=== PATIENT | female | born 1980 | race African-American/Black ===

== ENCOUNTER → 2018-01-26 | Outpatient (CLI) | payer OTHER ==
[2015-10-31 12:30] VITALS: BP 128/46
[~2018-01-26] MED LIST: ALBU1.25 NEB; ALBU6.7H IH; AZIT250T6 PO; FERR325T58 PO; FLUT1BLS IH; PRED20TA PO; PREN1TAB58 PO
--- NOTE | 2018-01-26 10:11 | RAD ---
CHEST PA LATERAL Technique: PA and lateral views of the chest were obtained. Clinical History: short of breath x 1 week, hx of asthma Comparison: October 31, 2015. Findings: The heart is mildly large. There is low lung volumes causing crowding of pulmonary vasculature. The pleural margins are clear. This study is mildly under penetrated due to large body habitus. Impression: Low lung volumes. No acute findings.. Electronically signed by: Mariano Aj III, MD (01/26/2018 10:08 AM) [facility]
== END | disposition home or self-care (01) ==
LOC: RAD 09:19
PROVIDERS: ATTEND Physician Assistant
DX: R06.00 Dyspnea, unspecified (principal); J45.901 Unspecified asthma with (acute) exacerbation
CPT/HCPCS: 71046

== ENCOUNTER 2018-10-01 16:20 | Emergency (ER) | payer OTHER ==
[~2018-10-01] VITALS: Ht 172.7 cm; Wt 204.1 kg
[~2018-10-01 16:20] MED LIST changes: +ALBU2.5V8 IH; -ALBU6.7H IH
--- NOTE | 2018-10-01 16:44 | PHYS DOC ---
Past History Past Medical History: Asthma Past Surgical History: , Other Alcohol Use: Rarely Drug Use: None Adult General Chief Complaint Chief Complaint: KNEE INJURY HPI HPI 38-year-old female presents after fall at home. The patient has had vomiting and general feeling of being ill for the last 4 days. She had a little bit dizzy today and started to fall over. She was unable to catch herself. She fell backwards onto her buttocks but states she also felt like her right leg was under her. She now has pain in her lumbar back that radiates down the right leg. Her right knee is painful. Right leg is externally rotated. She denies hitting her head or loss of consciousness. Review of Systems Review of Systems Constitutional: Denies fever or chills [] Eyes: Denies change in visual acuity, redness, or eye pain [] HENT: Denies nasal congestion or sore throat [] Respiratory: Denies cough or shortness of breath [] Cardiovascular: No additional information not addressed in HPI [] GI: Denies abdominal pain, nausea, vomiting, bloody stools or diarrhea [] : Denies dysuria or hematuria [] Musculoskeletal: Right hip pain. Right knee pain.[] Integument: Denies rash or skin lesions [] Neurologic: Denies headache, focal weakness or sensory changes [] Endocrine: Denies polyuria or polydipsia [] All other systems were reviewed and found to be within normal limits, except as documented in this note. Current Medications Current Medications Current Medications Medications (Trade) Dose Ordered Sig/Dimitri Start Time Stop Time Status Last Admin Dose Admin Ondansetron HCl (Zofran) 4 mg 1X ONCE 10/01/18 16:45 10/01/18 16:46 Sodium Chloride 1,000 ml @ 1,000 mls/hr 1X ONCE 10/01/18 16:45 10/01/18 17:44 Allergies Allergies Allergies Coded Allergies Type Severity Reaction Last Updated Verified Sulfa (Sulfonamide Antibiotics) Allergy Unknown Diarrhea 02/13/15 No Physical Exam Physical Exam Constitutional: Well developed, morbidly obese, well nourished, no acute distress, non-toxic appearance. [] HENT: Normocephalic, atraumatic, bilateral external ears normal, oropharynx moist, no oral exudates, nose normal. [] Eyes: PERRLA, EOMI, conjunctiva normal, no discharge. [] Neck: Normal range of motion, no tenderness, supple, no stridor. [] Cardiovascular:Heart rate regular rhythm, no murmur [] Lungs & Thorax: Bilateral breath sounds clear to auscultation [] Abdomen: Bowel sounds normal, soft, no tenderness, no masses, no pulsatile masses. [] Skin: Warm, dry, no erythema, no rash. [] Back: No tenderness, no CVA tenderness. [] Extremities: Exam limited by body habitus and pain. Right leg is externally rotated.[] Neurologic: Alert and oriented X 3, normal motor function, normal sensory function, no focal deficits noted. [] Psychologic: Affect normal, judgement normal, mood normal. [] EKG EKG [] Radiology/Procedures Radiology/Procedures [] Impressions: Indication: Injury from fall, pelvic and lower back pain TECHNIQUE: 3 views of the lumbar spine and single AP view of the pelvis COMPARISON: None FINDINGS: Lumbar spine is in normal anatomic alignment. No compression deformity. There are 5 lumbar vertebral bodies. Degenerative disc disease seen at L5-S1. Mild superior anterior abnormality seen in L2 vertebral body likely degenerative in nature. Bilateral hip joints are symmetric. No acute fractures. IMPRESSION: No acute radiographic findings. If concern persists further evaluation with CT may be of additional benefit. Electronically signed by: Marques Bolton DO (10/01/2018 6:12 PM) [facility] DICTATED AND SIGNED BY: MARQUES BOLTON DO DATE: 10/01/181811 CC: TIBURCIO AYON DO; YOSHI PELLETIER ~ Indication:Injury from fall, right knee pain TECHNIQUE: 3 views of the right knee COMPARISON:None FINDINGS/ impression: Suboptimal positioning limits evaluation. No apparent acute fractures or dislocation. Moderate tricompartmental osteoarthritis. No joint effusion. Electronically signed by: Marques Bolton DO (10/01/2018 6:20 PM) [facility] DICTATED AND SIGNED BY: MARQUES BOLTON DO DATE: 10/01/181819 CC: TIBURCIO AYON DO; YOSHI PELLETIER ~ Course & Med Decision Making Course & Med Decision Making Pertinent Labs and Imaging studies reviewed. (See chart for details) The patient does not have any fractures or dislocations. I have given her a liter of normal saline, 4 mg Zofran IV, 2 mg morphine IV, 125mg Solu-medrol IV and one Preston 5/325 by mouth. The patient does have significant pain with movement of the lateral side of the knee. I am concerned for meniscal injury. I will place her in an immobilizer at this time and she will follow up with orthopedics if this does not rapidly improve. I will discharge her with Preston 5/ 325 as well as a short course of prednisone. The patient cannot take ibuprofen or naproxen due to her asthma. She is stable for discharge at this time. [] Dragon Disclaimer Dragon Disclaimer This electronic medical record was generated, in whole or in part, using a voice recognition dictation system. Departure Departure: Impression: Primary Impression: Right knee pain Disposition: HOME, SELF-CARE Condition: STABLE Referrals: YOSHI PELLETIER (PCP) Patient Instructions: Knee Pain, [id number] Scripts Prednisone (PREDNISONE) 10 Mg Tablet 50 MG PO DAILY for knee swelling for 3 Days, #15 TAB Prov: TIBURCIO AYON DO 10/01/18 Hydrocodone Bit/Acetaminophen (NORCO 5-325 TABLET) 1 Each Tablet 1 TAB PO PRN Q6HRS PRN for PAIN, #14 TAB 0 Refills Prov: TIBURCIO AYON DO 10/01/18 Problem Qualifiers Primary Impression: Right knee pain Chronicity: acute Qualified Codes: M25.561 - Pain in right knee TIBURCIO AYON DO Oct 01, 2018 16:44
[2018-10-01] MEDS ORDERED: ONDANSETRON PF 4 MG/2 ML VIAL. IV ONE (16:45)
[2018-10-01] MEDS ORDERED: IV NORMAL SALINE 1,000ML 1,000 ML IV ONE (16:45)
[2018-10-01 17:45] LABS: BASO # 0.1 x10^3/uL (0.0-0.2); BASO % 1 % (0-3); EOS # 0.1 x10^3/uL (0.0-0.7); EOS % 1 % (0-3); HEMOGLOBIN 12.1 g/dL (12.0-15.5); LYMPH # 1.9 x10^3/uL (1.0-4.8); LYMPH % 14 % (24-48); MEAN CORPUSCULAR HEMOGLOBIN 23 pg (25-35); MEAN CORPUSCULAR HGB CONC 31 g/dL (31-37); MEAN CORPUSCULAR VOLUME 73 fL (79-100); MONO # 0.9 x10^3/uL (0.0-1.1); MONO % 7 % (0-9); NEUT # 10.3 x10^3uL (1.8-7.7); NEUT % 78 % (31-73); PLATELET COUNT 324 x10^3/uL (140-400); RED BLOOD COUNT 5.34 x10^6/uL (3.50-5.40); RED CELL DISTRIBUTION WIDTH 19.4 % (11.5-14.5); WHITE BLOOD COUNT 13.2 x10^3/uL (4.0-11.0)
[2018-10-01 18:05] LABS: ALBUMIN 3.5 g/dL (3.4-5.0); ALBUMIN/GLOBULIN RATIO 0.9 (1.0-1.7); CALCIUM 8.4 mg/dL (8.5-10.1); CREATININE 0.9 mg/dL (0.6-1.0); GFR 84.8; POTASSIUM 3.6 mmol/L (3.5-5.1); TOTAL BILIRUBIN 1.3 mg/dL (0.2-1.0); TOTAL PROTEIN 7.3 g/dL (6.4-8.2)
--- NOTE | 2018-10-01 18:15 | RAD ---
Indication: Injury from fall, pelvic and lower back pain TECHNIQUE: 3 views of the lumbar spine and single AP view of the pelvis COMPARISON: None FINDINGS: Lumbar spine is in normal anatomic alignment. No compression deformity. There are 5 lumbar vertebral bodies. Degenerative disc disease seen at L5-S1. Mild superior anterior abnormality seen in L2 vertebral body likely degenerative in nature. Bilateral hip joints are symmetric. No acute fractures. IMPRESSION: No acute radiographic findings. If concern persists further evaluation with CT may be of additional benefit. Electronically signed by: Marques Sanchez DO (10/01/2018 6:12 PM) [facility]
--- NOTE | 2018-10-01 18:15 | RAD ---
Indication: Injury from fall, pelvic and lower back pain TECHNIQUE: 3 views of the lumbar spine and single AP view of the pelvis COMPARISON: None FINDINGS: Lumbar spine is in normal anatomic alignment. No compression deformity. There are 5 lumbar vertebral bodies. Degenerative disc disease seen at L5-S1. Mild superior anterior abnormality seen in L2 vertebral body likely degenerative in nature. Bilateral hip joints are symmetric. No acute fractures. IMPRESSION: No acute radiographic findings. If concern persists further evaluation with CT may be of additional benefit. Electronically signed by: Marques Sanchez DO (10/01/2018 6:12 PM) [facility]
--- NOTE | 2018-10-01 18:23 | RAD ---
Indication:Injury from fall, right knee pain TECHNIQUE: 3 views of the right knee COMPARISON:None FINDINGS/ impression: Suboptimal positioning limits evaluation. No apparent acute fractures or dislocation. Moderate tricompartmental osteoarthritis. No joint effusion. Electronically signed by: Marques Sanchez DO (10/01/2018 6:20 PM) [facility]
[2018-10-01] MEDS ORDERED: HYDROcodone/APAP 5/325MG 1 TAB TABLET PO ONE (18:30)
[2018-10-01] MEDS ORDERED: HYDR-3165 PO (18:39)
[2018-10-01] MEDS ORDERED: PRED-220 PO (18:39)
[2018-10-01] MEDS ORDERED: MORPHINE SULFATE 2 MG/ML DISP.SYRIN. IV ONE (18:45)
[2018-10-01] MEDS ORDERED: methylPREDNISolone SOD SUCC PF 125 MG/2 ML VIAL. IV ONE (18:45)
[2018-10-01 18:54] LABS: ANISOCYTOSIS SLIGHT; HYPOCHROMIA SLIGHT; MICROCYTOSIS SLIGHT; PLT ESTIMATE ADEQUATE (ADEQUATE)
[2018-10-01] MEDS ORDERED: MORPHINE SULFATE 4 MG/ML DISP.SYRIN. IV ONE (19:00)
[2018-10-01] MEDS ORDERED: LIDOCAINE (700MG/PATCH) PATCH. TD ONE (19:45)
[2018-10-01 22:02] VITALS: BP 178/103
== END 2018-10-01 22:24 | disposition short-term general hospital (02) ==
LOC: ER 16:20
DX: M25.561 Pain in right knee (principal); M25.551 Pain in right hip; R11.11 Vomiting without nausea; R42 Dizziness and giddiness; M54.5 Low back pain; G89.11 Acute pain due to trauma; J45.909 Unspecified asthma, uncomplicated; Z88.2 Allergy status to sulfonamides; W18.39XA Other fall on same level, initial encounter; Y93.89 Activity, other specified; Y92.098 Other place in other non-institutional residence as the place of occurrence of the external cause; Y99.8 Other external cause status
CPT/HCPCS: 29505; 36415; 72100; 72170; 73562; 80053; 85025; 96361; 96374; 96375; 99285; J2405; J2930; J7030

== ENCOUNTER 2020-10-26 23:13 | Emergency (ER) | payer OTHER ==
[~2020-10-26] VITALS: Ht 172.7 cm; Wt 181.0 kg
[~2020-10-26 23:13] MED LIST changes: +HYDR-3165 PO; +PRED-220 PO
[2020-10-27 00:55] VITALS: BP 160/103
[2020-10-27] MEDS ORDERED: CYCL-331 PO (03:32)
== END 2020-10-27 03:43 | disposition home or self-care (01) ==
LOC: ER 23:13
DX: K80.20 Calculus of gallbladder without cholecystitis without obstruction (principal); J45.909 Unspecified asthma, uncomplicated; Z98.890 Other specified postprocedural states; Z88.2 Allergy status to sulfonamides
CPT/HCPCS: 36415; 74177; 80053; 81001; 81025; 85007; 85025; 96361; 96374; 96375; 99285; J2270; J2405; J7030; Q9967

== ENCOUNTER 2020-12-18 15:26 | Emergency (ER) | payer OTHER ==
[~2020-12-18] VITALS: Ht 172.7 cm; Wt 181.0 kg
[~2020-12-18 15:26] MED LIST changes: +CYCL-331 PO
--- NOTE | 2020-12-18 17:18 | PHYS DOC ---
Past History Past Medical History: Arthritis, Asthma, Other Additional Past Medical Histor: celiac, lymphedema Past Surgical History: , Other Additional Past Surgical Histo: sinus Alcohol Use: None Drug Use: None General Adult EDM: Chief Complaint: LOWER EXT PAIN HPI: HPI: Patient is a 40-year-old female who presents with left lower leg pain, warmth, redness, and swelling. Patient states "I am worried that I might have a blood clot in my leg". Pedal pulses intact. Range of motion denies history of DVT. Denies chest pain or shortness of breath. Patient has a history of asthma. Review of Systems: Review of Systems: Constitutional: Denies fever or chills Eyes: Denies change in visual acuity HENT: Denies nasal congestion or sore throat Respiratory: Denies cough or shortness of breath Cardiovascular: Denies chest pain or edema GI: Denies abdominal pain, nausea, vomiting, bloody stools or diarrhea : Denies dysuria Musculoskeletal: Denies back pain or joint pain Integument: Left lower leg redness and swelling Neurologic: Denies headache, focal weakness or sensory changes Endocrine: Denies polyuria or polydipsia Lymphatic: Denies swollen glands Psychiatric: Denies depression or anxiety Allergies: Allergies: Allergies Coded Allergies Type Severity Reaction Last Updated Verified Sulfa (Sulfonamide Antibiotics) Allergy Unknown Diarrhea 02/13/15 No Physical Exam: PE: Constitutional: Well developed, well nourished, no acute distress, non-toxic appearance. [] HENT: Normocephalic, atraumatic, bilateral external ears normal, oropharynx moist, no oral exudates, nose normal. [] Eyes: PERRLA, EOMI, conjunctiva normal, no discharge. [] Neck: Normal range of motion, no tenderness, supple, no stridor. [] Cardiovascular:Heart rate regular rhythm, no murmur [] Lungs & Thorax: Bilateral breath sounds clear to auscultation [] Abdomen: Bowel sounds normal, soft, no tenderness, no masses, no pulsatile masses. [] Skin: Warm, red, swollen, left lower leg Back: No tenderness, no CVA tenderness. [] Extremities: Left lower leg tenderness, ROM intact, swelling, redness. Neurologic: Alert and oriented X 3, normal motor function, normal sensory function, no focal deficits noted. [] Psychologic: Affect normal, judgement normal, mood normal. [] Current Patient Data: Vital Signs: Vital Signs Date Time Temp Pulse Resp B/P (MAP) Pulse Ox O2 Delivery O2 Flow Rate FiO2 12/18/20 15:32 98.3 125 28 162/108 (126) 96 Room Air EKG: EKG: [] Radiology/Procedures: Radiology/Procedures: [] Heart Score: C/O Chest Pain: No Risk Factors: Risk Factors: DM, Current or recent (<one month) smoker, HTN, HLP, family history of CAD, obesity. Risk Scores: Score 0 - 3: 2.5% MACE over next 6 weeks - Discharge Home Score 4 - 6: 20.3% MACE over next 6 weeks - Admit for Clinical Observation Score 7 - 10: 72.7% MACE over next 6 weeks - Early Invasive Strategies Course & Med Decision Making: Course & Med Decision Making Pertinent Labs and Imaging studies reviewed. (See chart for details) [] 40-year-old female presents with left lower leg pain, warmth, redness and swelling. Ultrasound ordered to rule out DVT. Patient's denying shortness of breath or chest pain at this time. Ultrasound of left lower leg negative for DVT. Discussed results with patient. Patient's blood pressure was slightly elevated. Denies history of hypertension. Patient denies headache, blurry vision, shortness of breath. Heart rate was elevated at 114. Morphine given to treat pain. CBC, CMP, normal saline bolus given. Patient is afebrile. Patient's WBCs are 16.4. All other labs are unremarkable. Patient will be discharged home with Keflex. Patient given 1 dose here in the emergency room. Patient instructed to return emergency room if she starts having worsening symptoms or concerns. Ibuprofen and Tylenol for discomfort. Dragon Disclaimer: Dragon Disclaimer: This electronic medical record was generated, in whole or in part, using a voice recognition dictation system. Departure Departure: Impression: Primary Impression: Cellulitis and abscess of left lower extremity Disposition: HOME / SELF CARE / HOMELESS Condition: STABLE Referrals: YOSHI PELLETIER (PCP) Patient Instructions: Cellulitis, [id number] Additional Instructions: You are seen in the emergency room for left lower leg swelling. Dorsum was negative for DVT. I am sending home with prescription for Keflex to treat cellulitis. He can take ibuprofen and Tylenol for discomfort. Please return the emergency room if you have worsening symptoms or concerns. Otherwise follow-up with your PCP on Sunday for further management. EMERGENCY DEPARTMENT GENERAL DISCHARGE INSTRUCTIONS Thank you for coming to [facility] (ED) today and trusting us with you care. We trust that you had a positivie experience in our Emergency Department. If you wish to speak to the department management, you may call the director at [phone]. YOUR FOLLOW UP INSTRUCTIONS ARE FOLLOWS: 1. Do you have a private Doctor? If you do not have a private doctor, please ask for a resource list of physicians or clinics that may be able to assist you with follow up care. 2. The Emergency Physician has interpreted your x-rays. The X-Ray specialist will also review them. If there is a change in the findings, you will be notified in 48 h ours when at all possible. 3. A lab test or culture has been done, your results will be reviewed and you will be notified if you need a change in treatment. ADDITIONAL INSTRUCTIONS AND INFORMATION: 1. Your care today has been supervised by a physician who is specially trained in emergency care. Many problems require more than one evaluation for a complete diagnosis and treatment. We recommend that you schedule your follow up appointment as recommended to ensure complete treatment of you illness or injury. If you are unable to obtain follow up care and continue to have a problem, or if your condition worsens, we recommend that you return to the ED. 2. We are not able to safely determine your condition over the phone nor are we able to give sound medical advice over the phone. For these safety reasons, if you call for medical advice we will ask you to come to the ED for further evaluation. 3. If you have any questions regarding these discharge instructions please call the ED at [phone]. SAFETY INFORMATION: In the interest of safety, wellness, and injury prevention; we encourage you to wear your sealbelt, if you smoke; quite smoking, and we encourage family to use a protective helmet for bicycling and other sporting events that present an increased risk for head injury. IF YOUR SYMPTOMS WORSEN OR NEW SYMPTOMS DEVELOP, OR YOU HAVE CONCERNS ABOUT YOUR CONDITION; OR IF YOUR CONDITION WORSENS WHILE YOU ARE WAITING FOR YOUR FOLLOW UP APPOINTMENT; EITHER CONTACT YOUR PRIMARY CARE DOCTOR, THE PHYSICIAN WHOSE NAME AND NUMBER YOU WERE GIVEN, OR RETURN TO THE ED IMMEDIATELY. Scripts Cephalexin (CEPHALEXIN) 500 Mg Capsule 1 CAP PO BID for infection for 5 Days, #10 CAP Prov: TIBURCIO CARDONA APRN 12/18/20 TIBURCIO CARDONA APRN Dec 18, 2020 17:18
--- NOTE | 2020-12-18 19:20 | RAD ---
Examination: LEFT LOWER EXTREMITY - UNILATERAL VENOUS DOPPLER Technique: Ultrasound evaluation of the left lower extremity was performed from the groin to the uppe r calf with thomas scale, spectral and color doppler evaluation. Indication: Left Leg swelling Comparison: None Findings: There is normal venous flow and compressibility of left common femoral vein, femoral vein, popliteal vein, and visualized proximal calf veins. Impression: No evidence for deep vein thrombosis of left lower extremity from the level of the calf v eins to the groins. Electronically signed by: Steve Baez MD (12/18/2020 7:17 PM) [facility]
[2020-12-18] MEDS ORDERED: CEPH500C PO (20:02)
[2020-12-18] MEDS ORDERED: CEPHALEXIN 250MG 4CAPSULE STARTPACK. PO ONE (20:30)
[2020-12-18] MEDS ORDERED: LABETALOL 20 MG/4 ML DISP.SYRIN. IVP ONE (20:30)
[2020-12-18] MEDS ORDERED: MORPHINE SULFATE 4 MG/ML DISP.SYRIN. IV ONE (20:30)
[2020-12-18] MEDS ORDERED: cloNIDine HCL 0.1 MG TABLET PO ONE (20:30)
[2020-12-18] MEDS ORDERED: IV NORMAL SALINE 1,000ML 1,000 ML IV ONE (20:30)
[2020-12-18 20:52] LABS: BASO # 0.1 x10^3/uL (0.0-0.2); BASO % 1 % (0-3); EOS % 0 % (0-3); HEMATOCRIT 40.4 % (36.0-47.0); HEMOGLOBIN 12.9 g/dL (12.0-15.5); LYMPH # 1.2 x10^3/uL (1.0-4.8); LYMPH % 7 % (24-48); MEAN CORPUSCULAR HEMOGLOBIN 24 pg (25-35); MEAN CORPUSCULAR HGB CONC 32 g/dL (31-37); MEAN CORPUSCULAR VOLUME 74 fL (79-100); MONO % 6 % (0-9); NEUT # 14.1 x10^3uL (1.8-7.7); NEUT % 86 % (31-73); PLATELET COUNT 257 x10^3/uL (140-400); RED BLOOD COUNT 5.43 x10^6/uL (3.50-5.40); RED CELL DISTRIBUTION WIDTH 20.4 % (11.5-14.5); WHITE BLOOD COUNT 16.4 x10^3/uL (4.0-11.0)
[2020-12-18 21:04] LABS: GFR 83.9; POTASSIUM 4.5 mmol/L (3.5-5.1)
[2020-12-18 21:10] LABS: CALCIUM 9.4 mg/dL (8.5-10.1); CREATININE 0.9 mg/dL (0.6-1.0)
[2020-12-18 21:16] LABS: ALBUMIN 3.8 g/dL (3.4-5.0); ALBUMIN/GLOBULIN RATIO 1.1 (1.0-1.7); TOTAL BILIRUBIN 0.6 mg/dL (0.2-1.0); TOTAL PROTEIN 7.2 g/dL (6.4-8.2)
[2020-12-18 21:17] LABS: % BANDS 1 % (0-9); % LYMPHS 9 % (24-48); % MONOS 1 % (0-10); % SEGS 89 % (35-66); ANISOCYTOSIS MOD; HYPOCHROMIA SLIGHT; MICROCYTOSIS SLIGHT; PLT ESTIMATE ADEQUATE (ADEQUATE)
[2020-12-18 21:30] VITALS: BP 161/92
[2020-12-18] MEDS ORDERED: CEPHALEXIN 250 MG CAPSULE PO ONE (22:00)
== END 2020-12-18 21:35 | disposition home or self-care (01) ==
LOC: ER 15:26
DX: L03.116 Cellulitis of left lower limb (principal); J45.909 Unspecified asthma, uncomplicated; Z88.2 Allergy status to sulfonamides
CPT/HCPCS: 36415; 80053; 83605; 85007; 85025; 93971; 96361; 96374; 99285; J2270; J7030

== ENCOUNTER 2021-05-08 14:51 | Emergency (ER) | payer OTHER ==
[~2021-05-08] VITALS: Ht 172.7 cm; Wt 181.0 kg
[~2021-05-08 14:51] MED LIST changes: +CEPH500C PO; -CYCL-331 PO; +CYCL10TA19 PO
[2021-05-08] MEDS ORDERED: IPRATRPIUM/ALBUTEROL 0.5/2.5MG 3 ML NEBU. ONE (14:57)
--- NOTE | 2021-05-08 15:00 | PHYS DOC ---
Past History Past Medical History: Arthritis, Asthma, Other Additional Past Medical Histor: celiac, lymphedema Past Surgical History: , Other Additional Past Surgical Histo: sinus Alcohol Use: None Drug Use: None Adult General HPI HPI Patient is a 41-year-old female presenting for asthma attack. Reports onset was 2 days ago, states she typically has a flareup this time a year. She has been using home Pulmicort inhaler with increased frequency of rescue inhaler. Also cites that she is a steroid dependent asthmatic and has been taking 10 mg of steroids daily since age 4. She is covered in outpatient setting by for[facility]mith at [facility]. Denies any recent hospitalizations and/or history of intubation. She has had no significant changes in baseline health. No recent sick contacts or travel. She is fully vaccinated against COVID-19 Review of Systems Review of Systems Fourteen body systems of review of systems have been reviewed. See HPI for pertinent positives and negative responses, other foster all other systems are negative, non-pertinent or non-contributory Current Medications Current Medications Current Medications Medications (Trade) Dose Ordered Sig/Dimitri Start Time Stop Time Status Last Admin Dose Admin Albuterol/ Ipratropium (Duoneb) 3 ml STK-MED ONCE 05/08/21 14:57 05/08/21 14:57 DC Allergies Allergies Allergies Coded Allergies Type Severity Reaction Last Updated Verified Sulfa (Sulfonamide Antibiotics) Allergy Intermediate Diarrhea 12/18/20 No Physical Exam Physical Exam Constitutional: Age-appropriate, morbidly obese, increased work of breathing and appears tired HENT: Normocephalic, atraumatic, bilateral external ears normal, oropharynx moist, no oral exudates, nose normal. Eyes: PERRLA, EOMI, conjunctiva normal, no discharge. Neck: Normal range of motion, no tenderness, supple, no stridor. Cardiovascular: Heart rate tachycardic, sinus rhythm, no murmurs rubs or gallops Lungs & Thorax: Respiratory distress with increased work of breathing, there is accessory muscle use of neck noted bilaterally, there is minimal air movement bilaterally Abdomen: Bowel sounds normal, soft, no tenderness, no masses, no pulsatile masses. Nonsurgical abdomen, no peritoneal signs Skin: Warm, dry, no erythema, no rash. Back: No tenderness, no CVA tenderness. Extremities: No tenderness, no cyanosis, no clubbing, ROM intact, no edema. Neurologic: Alert and oriented X 3, grossly normal motor & sensory function, no focal deficits noted. Psychologic: Affect normal, judgement normal, mood normal. Current Patient Data Vital Signs Vital Signs Date Time Temp Pulse Resp B/P (MAP) Pulse Ox O2 Delivery O2 Flow Rate FiO2 05/08/21 14:51 160 60 175/120 (138) 86 05/08/21 14:51 Room Air 05/08/21 15:15 7.0 Vital Signs Date Time Temp Pulse Resp B/P (MAP) Pulse Ox O2 Delivery O2 Flow Rate FiO2 05/08/21 15:15 95 Aerosol Mask 7.0 05/08/21 14:51 160 60 175/120 (138) Lab Results Laboratory Tests Test 05/08/21 15:15 05/08/21 16:23 White Blood Count 18.8 x10^3/uL Red Blood Count 5.55 x10^6/uL Hemoglobin 12.8 g/dL Hematocrit 42.9 % Mean Corpuscular Volume 77 fL Mean Corpuscular Hemoglobin 23 pg Mean Corpuscular Hemoglobin Concent 30 g/dL Red Cell Distribution Width 20.6 % Platelet Count 344 x10^3/uL Neutrophils (%) (Auto) 86 % Lymphocytes (%) (Auto) 9 % Monocytes (%) (Auto) 4 % Eosinophils (%) (Auto) 0 % Basophils (%) (Auto) 0 % Neutrophils # (Auto) 16.1 x10^3uL Lymphocytes # (Auto) 1.8 x10^3/uL Monocytes # (Auto) 0.8 x10^3/uL Eosinophils # (Auto) 0.0 x10^3/uL Basophils # (Auto) 0.1 x10^3/uL Segmented Neutrophils % 79 % Band Neutrophils % 2 % Lymphocytes % 10 % Monocytes % 9 % Nucleated Red Blood Cells 1 Platelet Estimate Adequate Anisocytosis Mod Prothrombin Time 10.4 SEC Prothromb Time International Ratio 1.0 Activated Partial Thromboplast Time < 21 SEC Bedside Venous pH 7.22 Bedside Venous pCO2 38 mmHg Bedside Venous pO2 64 mmHg Venous Blood HCO3 16 mmol/L POC Venous O2 Saturation (Farhan) 88 % Bedside FiO2 48 Sodium Level 139 mmol/L Potassium Level 4.8 mmol/L Chloride Level 100 mmol/L Carbon Dioxide Level 17 mmol/L Anion Gap 22 Blood Urea Nitrogen 18 mg/dL Creatinine 1.7 mg/dL Estimated GFR (Cockcroft-Gault) 40.1 BUN/Creatinine Ratio 11 Glucose Level 433 mg/dL Lactic Acid Level 12.4 mmol/L Calcium Level 9.3 mg/dL Magnesium Level 2.0 mg/dL Total Bilirubin 1.1 mg/dL Aspartate Amino Transf (AST/SGOT) 93 U/L Alanine Aminotransferase (ALT/SGPT) 161 U/L Alkaline Phosphatase 102 U/L Troponin I High Sensitivity 157 ng/L KC-Opd-A-Type Natriuretic Peptide 5206 pg/mL Total Protein 7.3 g/dL Albumin 3.8 g/dL Albumin/Globulin Ratio 1.1 SARS-CoV-2 Antigen (Rapid) Negative Current Medications Medications (Trade) Dose Ordered Sig/Dimitri Route PRN Reason Start Time Stop Time Status Last Admin Dose Admin Albuterol/ Ipratropium (Duoneb) 3 ml STK-MED ONCE .ROUTE 05/08/21 14:57 05/08/21 14:57 DC Albuterol Sulfate (Ventolin) 2.5 mg 1X ONCE NEB 05/08/21 15:15 05/08/21 15:19 DC 05/08/21 15:16 Methylprednisolone Sodium Succinate (SOLU-Medrol 125MG VIAL) 125 mg 1X ONCE IV 05/08/21 15:15 05/08/21 15:19 DC 05/08/21 15:16 Magnesium Sulfate 50 ml @ 25 mls/hr 1X ONCE IV 05/08/21 15:15 05/08/21 17:14 DC 05/08/21 15:16 Iohexol (Omnipaque 350 Mg/ml) 100 ml 1X ONCE IV 05/08/21 15:15 05/08/21 15:19 DC 05/08/21 17:13 Sodium Chloride 1,000 ml @ 1,000 mls/hr 1X ONCE IV 05/08/21 15:30 05/08/21 16:29 DC 05/08/21 15:24 Albuterol/ Ipratropium (Duoneb) 3 ml 1X ONCE NEB 05/08/21 15:30 05/08/21 15:31 DC 05/08/21 15:24 Azithromycin 500 mg/Sodium Chloride 250 ml @ 250 mls/hr 1X ONCE IV 05/08/21 16:30 05/08/21 17:29 DC 05/08/21 17:24 Ceftriaxone Sodium 2 gm/ Sodium Chloride 100 ml @ 200 mls/hr 1X ONCE IV 05/08/21 16:30 05/08/21 16:59 DC 05/08/21 16:53 Aspirin (Brenda Aspirin) 325 mg 1X ONCE PO 05/08/21 16:30 05/08/21 16:31 DC Sodium Chloride 250 ml @ As Directed STK-MED ONCE .ROUTE 05/08/21 16:45 05/08/21 16:45 DC Azithromycin (Zithromax) 500 mg STK-MED ONCE IV 05/08/21 16:45 05/08/21 16:45 DC Ceftriaxone Sodium (Rocephin) 2 gm STK-MED ONCE IV 05/08/21 16:45 05/08/21 16:45 DC Sodium Chloride 100 ml @ As Directed STK-MED ONCE .ROUTE 05/08/21 16:45 05/08/21 16:46 DC EKG EKG EKG ordered and interpreted by myself 1509 hrs. as sinus tachycardia at 148 bpm, unremarkable intervals, no axis deviation, no acute ischemic findings, no STEMI Radiology/Procedures Radiology/Procedures CTA CHEST History: Shortness of breath. Technique: CT of the chest was performed with intravenous contrast. PE protocol. Maximum intensity projection coronal and sagittal reconstructions were performed. Exposure: One or more of the following individualized dose reduction techniques were utilized for this examination: 1. Automated exposure control 2. Adjustment of the mA and/or kV according to patient size 3. Use of iterative reconstruction technique. Comparison: None Findings: Degraded evaluation due to patient body habitus. Chest: Bilateral pulmonary emboli involving all of the lobes. The right ventricle is mildly dilated. No pathologic lymphadenopathy. No aortic aneurysm or dissection. No consolidation or pleural effusion. No pneumothorax. Upper abdomen: The imaged upper abdomen is unremarkable. Bones: Subacute right 8 through 10th rib fractures. Impression: 1. Acute bilateral pulmonary emboli. 2. Mildly dilated right ventricle. Recommend correlation for right heart strain. 3. Subacute right-sided rib fractures. FOR INTERNAL CODING PURPOSES Critical result: Findings discussed with Dr. Chahal at 05/08/2021 5:41 PM. RESULT CODE: (C) Electronically signed by: Ke Ortiz DO (05/08/2021 5:43 PM) [facility] Heart Score C/O Chest Pain: No HEART Score for Chest Pain: HEART Score for Chest Pain Response (Comments) Value History Moderately Suspicious 1 ECG Nonspecific Repolarizatio 1 Age < 45 0 Risk Factors 1 or 2 Risk Factors 1 Troponin < Normal Limit 0 Total 3 Risk Factors: Risk Factors: DM, Current or recent (<one month) smoker, HTN, HLP, family history of CAD, obesity. Risk Scores: Risk Factors: DM, Current or recent (<one month) smoker, HTN, HLP, family history of CAD, obesity. Course & Med Decision Making Course & Med Decision Making Airway patent, patient in no overt respiratory distress on immediate arrival, IV access and vitals obtained concerning for tachycardia, tachypnea, and hypoxia in the 70s on arrival Patient immediately stabilized with x2 back to back albuterol breathing treatments administered. 125 mg Solu-Medrol and 2 g IV magnesium given. Subsequent 1 L fluid IV normal saline administered Patient repositioned and with treatment above tachypnea and tachycardia im proved. Patient taken off of initial nonrebreather and titrated down to nasal cannula Further comprehensive ER work-up obtained concerning for submassive pulmonary embolism due to bilateral pulmonary emboli involving all lobes with subsequent increase BMP and imaging proof of right heart strain. Heparin drip started Discussed need for ICU admission and higher acuity of care. Patient's forgesmith at [facility], joint decision made to transfer there. I contacted hospitalist, Dr. Moses who ultimately accepted patient in transfer under his care Critical Care Time This patient required critical care. Due to the fact that the patient required a significant amount of one on one physician - patient contact time, ordering and review of studies, arranging urgent treatment with development of a management plan, evaluation of patients response to treatment with frequent reassessments, and discussions with other providers this patient required 40 minutes of critical care time. Critical care time was indicated due to the inherent instability and/or potential for instability in this patient. The critical care time that is allocated to this patient is above and beyond any time spent on any other billable procedures performed on this patient. Dragon Disclaimer Dragon Disclaimer This electronic medical record was generated, in whole or in part, using a voice recognition dictation system. Departure Departure: Impression: Primary Impression: Bilateral pulmonary embolism Additional Impressions: Acute respiratory failure with hypoxia Asthma Disposition: 02 [facility] Admitting Physician: Other (Dr. Wray) Condition: GUARDED Referrals: YOSHI PELLETIER (PCP) Problem Qualifiers NIMCO CHAHAL DO May 08, 2021 15:00
[2021-05-08] MEDS ORDERED: MAGNESIUM SULFATE 2GM 50 ML IV ONE (15:15)
[2021-05-08] MEDS ORDERED: IOHEXOL 350 MG/ML 100 ML VIAL. IV ONE (15:15)
[2021-05-08] MEDS ORDERED: methylPREDNISolone SOD SUCC PF 125 MG/2 ML VIAL. IV ONE (15:15)
[2021-05-08] MEDS ORDERED: ALBUTEROL SULFATE 2.5 MG/3 ML NEBU. NEB ONE (15:15)
[2021-05-08] MEDS ORDERED: IPRATRPIUM/ALBUTEROL 0.5/2.5MG 3 ML NEBU. NEB ONE (15:30)
[2021-05-08] MEDS ORDERED: IV NORMAL SALINE 1,000ML 1,000 ML IV ONE (15:30)
[2021-05-08 15:41] LABS: BASO # 0.1 x10^3/uL (0.0-0.2); BASO % 0 % (0-3); EOS % 0 % (0-3); HEMATOCRIT 42.9 % (36.0-47.0); HEMOGLOBIN 12.8 g/dL (12.0-15.5); LYMPH # 1.8 x10^3/uL (1.0-4.8); LYMPH % 9 % (24-48); MEAN CORPUSCULAR HEMOGLOBIN 23 pg (25-35); MEAN CORPUSCULAR HGB CONC 30 g/dL (31-37); MEAN CORPUSCULAR VOLUME 77 fL (79-100); MONO # 0.8 x10^3/uL (0.0-1.1); MONO % 4 % (0-9); NEUT # 16.1 x10^3uL (1.8-7.7); NEUT % 86 % (31-73); PLATELET COUNT 344 x10^3/uL (140-400); RED BLOOD COUNT 5.55 x10^6/uL (3.50-5.40); RED CELL DISTRIBUTION WIDTH 20.6 % (11.5-14.5); WHITE BLOOD COUNT 18.8 x10^3/uL (4.0-11.0)
--- NOTE | 2021-05-08 15:43 | EKG ---
[address] [address] Test Date: 2021-05-08 Test Time: 15:06:04 Pat Name: STACI CARLOS Department: Room: Gender: F [place] Nurse: GALILEA : 1980 Requested By: NIMCO CHAHAL Order Number: [id number] Reading MD: Adithya Carter Measurements Intervals [place] Rate: 148 P: 251 MS: 100 QRS: 12 QRSD: 92 T: 37 QT: 268 QTc: 425 Interpretive Statements SINUS TACHYCARDIA R-S TRANSITION ZONE IN V LEADS DISPLACED TO THE LEFT NO SPECIFIC ECG ABNORMALITIES RI6.02 No previous ECG available for comparison Electronically Signed On 05-09-2021 8:56:49 OCCUPATIONAL HEALTH PHYSICIAN by Adithya Carter
[2021-05-08 15:53] LABS: CALCIUM 9.3 mg/dL (8.5-10.1); CREATININE 1.7 mg/dL (0.6-1.0); GFR 40.1; POTASSIUM 4.8 mmol/L (3.5-5.1)
[2021-05-08 15:59] LABS: ALBUMIN 3.8 g/dL (3.4-5.0); ALBUMIN/GLOBULIN RATIO 1.1 (1.0-1.7); TOTAL BILIRUBIN 1.1 mg/dL (0.2-1.0); TOTAL PROTEIN 7.3 g/dL (6.4-8.2)
[2021-05-08 16:16] LABS: % BANDS 2 % (0-9); % LYMPHS 10 % (24-48); % MONOS 9 % (0-10); % SEGS 79 % (35-66); NUCLEATED RBC 1; PLT ESTIMATE ADEQUATE (ADEQUATE)
[2021-05-08 16:17] LABS: ANISOCYTOSIS MOD
--- NOTE | 2021-05-08 16:23 | RAD ---
XR CHEST 1V History: Reason: SHOB / Spl. Instructions: / History: Comparison: January 26, 2018 Findings: Degraded evaluation due to patient body habitus. No consolidation or pleural effusion. Normal heart s ize. No pneumothorax. Impression: 1. No acute cardiopulmonary process. Electronically signed by: Ke Ortiz DO (05/08/2021 4:21 PM) [facility]
[2021-05-08] MEDS: ASPIRIN 325 MG TABLET PO ONE ×2 (16:30→16:53)
[2021-05-08] MEDS ORDERED: AZITHROMYCIN 500 MG in IV NORMAL SALINE 250ML 250 ML IV ONE (16:30)
[2021-05-08] MEDS ORDERED: IV NORMAL SALINE 250ML 250 ML ONE (16:45)
[2021-05-08] MEDS ORDERED: AZITHROMYCIN 500 MG VIAL. IV ONE (16:45)
[2021-05-08] MEDS ORDERED: IV NORMAL SALINE 100ML 100 ML ONE (16:45)
--- NOTE | 2021-05-08 17:45 | RAD ---
CTA CHEST History: Shortness of breath. Technique: CT of the chest was performed with intravenous contrast. PE protocol. Maximum intensity pr ojection coronal and sagittal reconstructions were performed. Exposure: One or more of the following individualized dose reduction techniques were utilized for thi s examination: 1. Automated exposure control 2. Adjustment of the mA and/or kV according to patient size 3. Use of iterative reconstruction technique. Comparison: None Findings: Degraded evaluation due to patient body habitus. Chest: Bilateral pulmonary emboli involving all of the lobes. The right ventricle is mildly dilated. No pathologic lymphadenopathy. No aortic aneurysm or dissection. No consolidation or pleural effusion. No pneumothorax. Upper abdomen: The imaged upper abdomen is unremarkable. Bones: Subacute right 8 through 10th rib fractures. Impression: 1. Acute bilateral pulmonary emboli. 2. Mildly dilated right ventricle. Recommend correlation for right heart strain. 3. Subacute right-sided rib fractures. FOR INTERNAL CODING PURPOSES Critical result: Findings discussed with Dr. Rodriguez at 05/08/2021 5:41 PM. RESULT CODE: (C) Electronically signed by: Ke Ortiz DO (05/08/2021 5:43 PM) [facility]
[2021-05-08] MEDS ORDERED: HEPARIN for IV BOLUS 10,000 UNIT/10 ML VIAL. IV PRN ×3 (18:00)
[2021-05-08] MEDS ORDERED: HEPARIN for IV BOLUS 10,000 UNIT/10 ML VIAL. IV ONE (18:00)
[2021-05-08] MEDS ORDERED: HEPARIN 25,000UTS/250ML PREMIX 250 ML IV PRN (18:00)
[2021-05-08 18:45] LABS: BACTERIA,URINE 0 /HPF (0-FEW); BILIRUBIN,URINE NEG (NEG); CLARITY,URINE CLEAR; COLOR,URINE YELLOW; GLUCOSE,URINE >=1000 mg/dL (NEG); NITRITE,URINE NEG (NEG); RBC,URINE OCC /HPF (0-2); SQUAMOUS EPITHELIAL CELL,UR MOD /LPF; WBC,URINE 0 /HPF (0-4)
[2021-05-08 18:48] VITALS: BP 174/94
== END 2021-05-08 19:45 | disposition short-term general hospital (02) ==
LOC: ER 14:51
DX: I26.99 Other pulmonary embolism without acute cor pulmonale (principal); J96.01 Acute respiratory failure with hypoxia; J45.901 Unspecified asthma with (acute) exacerbation; M19.90 Unspecified osteoarthritis, unspecified site; Z20.822 Contact with and (suspected) exposure to COVID-19; Z88.2 Allergy status to sulfonamides
CPT/HCPCS: 36415; 71045; 71275; 80053; 81001; 82803; 83605; 83735; 83880; 84484; 85007; 85025; 85610; 85730; 87426; 93005; 94640; 96365; 96366; 96367; 96368; 96375; 96376; 99291; C9803; J0456; J0696; J1644; J2930; J3475; J7030; J7050; J7613; Q9967; U0003

== ENCOUNTER 2021-05-20 10:04 | Emergency (ER) | payer OTHER ==
[~2021-05-20] VITALS: Ht 172.7 cm; Wt 223.0 kg
[2021-05-20 10:42] LABS: BASO # 0.1 x10^3/uL (0.0-0.2); BASO % 1 % (0-3); EOS % 0 % (0-3); HEMOGLOBIN 8.7 g/dL (12.0-15.5); LYMPH # 5.3 x10^3/uL (1.0-4.8); LYMPH % 27 % (24-48); MEAN CORPUSCULAR HEMOGLOBIN 23 pg (25-35); MEAN CORPUSCULAR HGB CONC 29 g/dL (31-37); MEAN CORPUSCULAR VOLUME 79 fL (79-100); MONO # 1.8 x10^3/uL (0.0-1.1); MONO % 9 % (0-9); NEUT # 12.3 x10^3uL (1.8-7.7); NEUT % 63 % (31-73); PLATELET COUNT 253 x10^3/uL (140-400); RED BLOOD COUNT 3.81 x10^6/uL (3.50-5.40); RED CELL DISTRIBUTION WIDTH 21.1 % (11.5-14.5); WHITE BLOOD COUNT 19.6 x10^3/uL (4.0-11.0)
[2021-05-20] MEDS ORDERED: NOREPINEPHRINE BITARTRATE 8 MG in IV DEXTROSE 5% 250 ML IV PRN (10:45)
[2021-05-20 10:48] LABS: ALBUMIN 2.7 g/dL (3.4-5.0); ALBUMIN/GLOBULIN RATIO 0.6 (1.0-1.7); CREATININE 1.4 mg/dL (0.6-1.0); GFR 50.1; TOTAL PROTEIN 7.3 g/dL (6.4-8.2)
[2021-05-20] MEDS ORDERED: EPINEPHrine SYRINGE 1 MG/10 ML SYRINGE ONE (10:48)
[2021-05-20 10:55] LABS: POTASSIUM 6.1 mmol/L (3.5-5.1)
--- NOTE | 2021-05-20 11:03 | RAD ---
EXAM: Chest, single view. HISTORY: Intubation. COMPARISON: 05/08/2021 FINDINGS: A frontal view of the chest is obtained. There is an endotracheal tube within the mid to di stal trachea. The tip is approximately 2.6 cm proximal to the aline. There is diffuse interstitial a nd alveolar infiltrate. There are small pleural effusions. There is no pneumothorax. There is a stabl e prominent cardiac silhouette. IMPRESSION: 1. Diffuse interstitial and alveolar infiltrate. 2. Endotracheal tube within the mid to distal trachea. Electronically signed by: Adrienne Conley MD (05/20/2021 11:01 AM) [id number]
--- NOTE | 2021-05-20 11:23 | PHYS DOC ---
Past History Past Medical History: Arthritis, Asthma, Other Additional Past Medical Histor: celiac, lymphedema Past Surgical History: , Other Additional Past Surgical Histo: sinus Alcohol Use: None Drug Use: None General Adult EDM: Chief Complaint: CPR/FULL ARREST HPI: HPI: 41-year-old female presents via EMS as respiratory distress. The entire chart is gleaned from EMS reports as the patient is unresponsive. The patient was having shortness of breath and called EMS. When they arrived they found her oxygen to be below 90. She increased with supplemental oxygen. While they were transporting her to the ambulance, she collapsed. She continued to have a pulse but needed supplemental respirations. EMS continued to bag the patient in route to the hospital. They did not report loss of pulses during transport. The patient was reported to have been discharged from [facility] within the last few days because she had a blood clot. Review of Systems: Review of Systems: Unable to evaluate due to unresponsive state Current Medications: Current Meds: Current Medications Medications (Trade) Dose Ordered Sig/Dimitri Start Time Stop Time Status Last Admin Dose Admin Epinephrine HCl (EPINEPHrine SYRINGE) 1 mg STK-MED ONCE 05/20/21 10:48 05/20/21 10:48 DC Norepinephrine Bitartrate 8 mg/ Dextrose 258 ml @ 13.545 mls/ hr CONT PRN 05/20/21 10:45 Allergies: Allergies: Allergies Coded Allergies Type Severity Reaction Last Updated Verified Sulfa (Sulfonamide Antibiotics) Allergy Intermediate Diarrhea 12/18/20 No aspirin Allergy Unknown 05/08/21 Yes Physical Exam: PE: Constitutional: Well developed, well nourished, morbidly obese, severe acute distress. [] HENT: Normocephalic, atraumatic, bilateral external ears normal, oropharynx dry, no oral exudates, nose normal. [] Eyes: Pupils mid dilated, no corneal reflex, conjunctiva normal, no discharge. [] Neck: No obvious trauma [] Cardiovascular: Asystole [] Lungs & Thorax: Bilateral breath sounds diminished [] Abdomen: soft, no tenderness, no masses, no pulsatile masses. [] Skin: Warm, dry, scattered ecchymosis of the forearms. [] Back: No obvious signs of trauma [] Extremities: No obvious signs of trauma [] Neurologic: Unresponsive, no corneal reflex [] Current Patient Data: Labs: Laboratory Tests Test 05/20/21 10:05 White Blood Count 19.6 x10^3/uL (4.0-11.0) H Red Blood Count 3.81 x10^6/uL (3.50-5.40) Hemoglobin 8.7 g/dL (12.0-15.5) L Hematocrit 30.0 % (36.0-47.0) L Mean Corpuscular Volume 79 fL (79-100) Mean Corpuscular Hemoglobin 23 pg (25-35) L Mean Corpuscular Hemoglobin Concent 29 g/dL (31-37) L Red Cell Distribution Width 21.1 % (11.5-14.5) H Platelet Count 253 x10^3/uL (140-400) Neutrophils (%) (Auto) 63 % (31-73) Lymphocytes (%) (Auto) 27 % (24-48) Monocytes (%) (Auto) 9 % (0-9) Eosinophils (%) (Auto) 0 % (0-3) Basophils (%) (Auto) 1 % (0-3) Neutrophils # (Auto) 12.3 x10^3uL (1.8-7.7) H Lymphocytes # (Auto) 5.3 x10^3/uL (1.0-4.8) H Monocytes # (Auto) 1.8 x10^3/uL (0.0-1.1) H Eosinophils # (Auto) 0.0 x10^3/uL (0.0-0.7) Basophils # (Auto) 0.1 x10^3/uL (0.0-0.2) Platelet Estimate Pending Sodium Level 144 mmol/L (136-145) Potassium Level 6.1 mmol/L (3.5-5.1) *H Chloride Level 101 mmol/L (98-107) Carbon Dioxide Level 24 mmol/L (21-32) Anion Gap 19 (6-14) H Blood Urea Nitrogen 13 mg/dL (7-20) Creatinine 1.4 mg/dL (0.6-1.0) H Estimated GFR (Cockcroft-Gault) 50.1 BUN/Creatinine Ratio 9 (6-20) Glucose Level 103 mg/dL (70-99) H Calcium Level 9.0 mg/dL (8.5-10.1) Total Bilirubin 2.0 mg/dL (0.2-1.0) H Aspartate Amino Transferase (AST) 226 U/L (15-37) H Alanine Aminotransferase (ALT) 184 U/L (14-59) H Alkaline Phosphatase 217 U/L (46-116) H Troponin I High Sensitivity 85 ng/L (4-50) H Total Protein 7.3 g/dL (6.4-8.2) Albumin 2.7 g/dL (3.4-5.0) L Albumin/Globulin Ratio 0.6 (1.0-1.7) L EKG: EKG: Irregular rhythm, rate 103, normal axis, upsloping ST in V2 V3, atrial fibrillation. [] Radiology/Procedures: Radiology/Procedures: [] Impressions: EXAM: Chest, single view. HISTORY: Intubation. COMPARISON: 05/08/2021 FINDINGS: A frontal view of the chest is obtained. There is an endotracheal tube within the mid to distal trachea. The tip is approximately 2.6 cm proximal to the aline. There is diffuse interstitial and alveolar infiltrate. There are small pleural effusions. There is no pneumothorax. There is a stable prominent cardiac silhouette. IMPRESSION: 1. Diffuse interstitial and alveolar infiltrate. 2. Endotracheal tube within the mid to distal trachea. Electronically signed by: Adrienne Morales MD (05/20/2021 11:01 AM) [id number] DICTATED AND SIGNED BY: ADRIENNE MORALES MD DATE: 05/20/21 1100 CC: TIBURCIO AYON DO; JENISE ALVARENGA APRN; YOSHI PELLETIER PA ~MTH0 0 Heart Score: C/O Chest Pain: N/A Risk Factors: Risk Factors: DM, Current or recent (<one month) smoker, HTN, HLP, family history of CAD, obesity. Risk Scores: Score 0 - 3: 2.5% MACE over next 6 weeks - Discharge Home Score 4 - 6: 20.3% MACE over next 6 weeks - Admit for Clinical Observation Score 7 - 10: 72.7% MACE over next 6 weeks - Early Invasive Strategies Course & Med Decision Making: Course & Med Decision Making Pertinent Labs and Imaging studies reviewed. (See chart for details) On arrival as we move the patient to the bed we checked for pulses and the patient was pulseless. We immediately started CPR. The patient was bagging moderately well without intubation. Once patient was hooked to the monitor a pulse check was performed and she was found to be in asystole. Compressions resumed and we attempted multiple rounds of epinephrine, bicarb, magnesium, and a nor epi drip. At one point we were able to get a regular rhythm and a blood pressure. EKG showed heart rate of 103 and an irregular rhythm. The patient's condition deteriorated again after for 5 minutes and we continued cycles of compressions and appropriate medications. We were unable to get a pulse back or a regular rhythm. Despite all of our efforts, the patient at 10:35 AM. [] Dragon Disclaimer: Dragon Disclaimer: This electronic medical record was generated, in whole or in part, using a voice recognition dictation system. Departure Departure: Impression: Primary Impression: Respiratory failure Additional Impressions: Asystole Atrial fibrillation Disposition: 20 Condition: Referrals: YOSHI PELLETIER (PCP) TIBURCIO AYON DO May 20, 2021 11:23
[2021-05-20 11:31] LABS: % BANDS 4 % (0-9); % LYMPHS 26 % (24-48); % MONOS 13 % (0-10); % SEGS 57 % (35-66); ANISOCYTOSIS SLIGHT; HYPOCHROMIA SLIGHT; NUCLEATED RBC 3; OVALOCYTES OCC; PLT ESTIMATE ADEQUATE (ADEQUATE); POLYCHROMASIA SLIGHT
--- NOTE | 2021-05-20 12:25 | EKG ---
[address] [address] Test Date: 2021-05-20 Test Time: 10:20:05 Pat Name: STACI CARLOS Department: Room: Gender: F Fabrication Manager: : 1980 Requested By: TIBURCIO AYON Order Number: [id number] Reading MD: Robert Monson Measurements Intervals [place] Rate: P: OK: QRS: QRSD: T: QT: QTc: Interpretive Statements ATRIAL FIBRILLATION Electronically Signed On 05-22-2021 7:24:28 EGG FACTORY WORKER by Robert Monson
== END 2021-05-20 14:15 ==
LOC: ER 10:04
DX: U07.1 COVID-19 (principal); I46.9 Cardiac arrest, cause unspecified; J96.90 Respiratory failure, unspecified, unspecified whether with hypoxia or hypercapnia; I48.91 Unspecified atrial fibrillation; J45.909 Unspecified asthma, uncomplicated
CPT/HCPCS: 36415; 71045; 80053; 82803; 82947; 83605; 84484; 85007; 85025; 85610; 85730; 87040; 92950; 93005; 99285; C9803; U0003; 94002